=== PATIENT | female | born 1995 | race Caucasian/White ===

== ENCOUNTER → 2017-11-17 15:50 | Outpatient (CLI) | payer OTHER, MEDICAID, SELFPAY ==
--- NOTE | 2017-11-17 16:02 | DI.US.S_ITS ---
PROCEDURE: US OB >= 14 WEEKS FETUS INDICATIONS: Anatomy Scan OUTSIDE/PRIOR DATING DATA: Last menstrual period (LMP): 06.27.17. LMP-based estimated date of delivery (LEATHA): 04.03.18. First dating scan (date and location): Referring physician's office 10.10.17. Estimated date of delivery (LEATHA) from first dating scan: 04.03.18 TECHNIQUE: Real-time scanning was performed of the fetus, with image documentation and biometric measurements. Endovaginal scanning: Not performed COMPARISON: [facility], , OB COMPLETE LESS THAN 14 WKS, 10/10/2017, 17:48. [facility], , US OB >= 14 WEEKS FETUS, 11/02/2017, 16:20. FINDINGS: General: A single living intrauterine gestation is present. Presentation: Breech. Placenta: Placental position is anterior, without previa. Amniotic fluid index: 3.8 cm, normal range is 5-24 cm. heart rate: 147 beats per minute. Maternal cervical canal: 3.8 cm long. Normal lower limit is 2.5 cm. biometrics: Biparietal diameter: 49 mm; 20 weeks 6 days Head circumference: 178 mm; 20 weeks 2 days Abdominal circumference: 148 mm; 20 weeks 1 day Femur length: 34 mm; 20 weeks 5 days Estimated gestational age from initial scan: 20 weeks 3 days Composite gestational age from present scan: 20 weeks 4 days Estimated weight and percentile: 349 g, which is at the 41st percentile for gestational age Measurement variability for biometric dating: +/- 7 days from 14 weeks to 15 weeks 6 days gestation, +/- 10 days from 16 weeks to 21 weeks 6 days gestation, +/- 2 weeks from 22 weeks to 27 weeks 6 days gestation, +/- 3 weeks for 28 weeks gestation or later. weight reference: 4500 g or EFW >90/95% is considered macrosomia or large for gestational age. EFW <10% is small for gestational age. EFW 5% or less is considered intra-uterine growth restriction. Anatomic survey: Neuro: Ventricles are non-dilated at less than 10 mm. Cisterna magna is normal at 3-11 mm. Cerebellum is normal in size and morphology. Nuchal skin fold: Normal at less than 6 mm between 14-21 weeks gestational age. Face: Nose and lips, facial profile are normal. Spine: No evidence for spina bifida. Heart: 4-chambered heart is present, with normal ventricular outflow tracts. Diaphragm: Diaphragm is intact. Stomach: Left-sided stomach is present. Kidneys: No hydronephrosis. Normal is less than 5 mm in 2nd trimester, less than 7 mm in 3rd trimester. Cord: 3-vessel cord has orthotopic insertion. Bladder: Normal in size. Extremities: All 4 extremities identified. IMPRESSION: 1. Single living anterior and gestation. 2. Normal survey of anatomy. Dictated by: Tracey Rankin M.D. on 11/17/2017 at 17:27 Approved by: Tracey Rankin M.D. on 11/17/2017 at 17:44
== END ==
PROVIDERS: PCP Obstetrics & Gynecology; Visit Provider Obstetrics & Gynecology
DX: Z34.92 Encounter for supervision of normal pregnancy, unspecified, second trimester (principal); Z3A.20 20 weeks gestation of pregnancy
CPT/HCPCS: 76811

== ENCOUNTER → 2018-01-06 13:40 | Outpatient (CLI) | payer OTHER, MEDICAID, SELFPAY ==
[2018-01-06 14:59] LABS: Hemoglobin 12.6 g/dL (12.0-16.0)
[2018-01-06 15:20] LABS: GTT (PREG) 1 Hour PP 50gm Dose 98 mg/dL (76-139)
== END ==
PROVIDERS: PCP Family Medicine; Visit Provider Obstetrics & Gynecology
DX: Z34.02 Encounter for supervision of normal first pregnancy, second trimester (principal)
CPT/HCPCS: 36415; 82950; 85014; 85018

== ENCOUNTER → 2018-01-31 16:34 | Outpatient (CLI) | payer OTHER, MEDICAID, SELFPAY | PROVIDERS: PCP Family Medicine; Visit Provider Obstetrics & Gynecology | DX: Z34.93 Encounter for supervision of normal pregnancy, unspecified, third trimester (principal); Z53.9 Procedure and treatment not carried out, unspecified reason ==

== ENCOUNTER → 2018-03-15 17:39 | Outpatient (CLI) | payer OTHER, MEDICAID, SELFPAY ==
[2018-03-16 11:14] LABS: Strep Grp B PCR POS for Grp B Strep
== END ==
PROVIDERS: PCP Family Medicine; Visit Provider Obstetrics & Gynecology
DX: Z3A.37 37 weeks gestation of pregnancy (principal)
CPT/HCPCS: 87653

== ENCOUNTER 2018-04-05 10:31 | Observation (INO) | payer OTHER, MEDICAID, SELFPAY ==
--- NOTE | 2018-05-26 15:28 | PM.OBDS.1 ---
Discharge Providers Date of admission: 04/05/18 10:31 Primary care physician: Karma Daniel DO Discharge provider: Ania Morrell MD Discharge Date: 04/13/18 Summary Date Patient Seen: 04/13/18 Time Patient Seen: 08:40 Hospital Course: Patient is a 22-year-old 1 para 1 who presented for induction of labor at 41-,2/7 weeks gestation. She had artificial rupture of membranes at 13 20 on 04/11/2018. She delivered at 4:41 a.m. on 04/12/2018 by spontaneous vaginal delivery. Her course was unremarkable and she was discharged home on 04/13/2018 Peripartum Data Infant Delivery Method: Natural Vaginal Laceration description: Perineal - 1st Degree Episiotomy description: None Procedures: Induction of labor with Pitocin Epidural analgesia Spontaneous vaginal delivery complications: none Discharge Diagnosis (1) 41 weeks gestation of : Status: Acute (2) Spontaneous vaginal delivery: Status: Acute Status at Discharge Functional status at discharge: independent ambulation Overall status at discharge: patient is progressing back to baseline Time Spent with Patient Total time spent providing and/or coordinating discharge services: Less than 30 minutes Discharge Plan Discharge Plan Patient Disposition: Home Discharge comment: Call with fever, chills or bleeding vaginally more than a pad in an hour Discharge Med Rec/Prescriptions Prescriptions: No Action valacyclovir [Valtrex] 500 mg tablet 500 mg PO DAILY Qty: 90 RF: 1 norethindrone (contraceptive) [Ortho Micronor] 0.35 mg tablet 0.35 mg PO DAILY Qty: 28 RF: 11 Follow up/Referrals: Karma Daniel DO [Primary Care Provider] - Ania Morrell MD [Physician] - 6 Weeks Provider Discharge Instructions Diet: Diet as Tolerated Activity: No intercourse Skin/Wound/Dressing Care Report to your healthcare provider any signs of infection, such as:: chills, fever, increased pain and unusual drainage Visit Report/Discharge Packet Instructions: DI for Labor and Delivery, Vaginal Visit Report Forms: Stroke Signs & Symptoms Discharge Data Primary Care Provider: Karma Daniel Attending Provider: Ania Morrell Admit Date/Time: 04/05/18 10:31 Discharges patient from system. Discharge Date/Time: 04/05/18 13:30
== END 2018-04-05 13:30 | disposition home or self-care (01) ==
PROVIDERS: Admitting Provider Obstetrics & Gynecology; PCP Family Medicine; Visit Provider Obstetrics & Gynecology
DX: Z34.03 Encounter for supervision of normal first pregnancy, third trimester (principal); Z3A.40 40 weeks gestation of pregnancy
CPT/HCPCS: 59025; 59050; G0378; G0379

== ENCOUNTER 2018-04-08 14:07 | Outpatient (CLI) | payer OTHER, MEDICAID, SELFPAY ==
--- NOTE | 2018-04-08 14:48 | PM.OBTRLD ---
Visit Information Visit Information Date of evaluation: 04/08/18 Primary OB Provider: Ania Morrell On-call OB Provider: Karma Daniel Reason for Evaluation: Yes non-stress test non-stress test reason: other (Postdates) Evaluation Evaluation Baseline heart rate: 130 Variability: Moderate (11-25) monitor accelerations: Present monitor decelerations: Absent Category of Tracing: I Diagnosis, Plan/Disposition Final Diagnosis (1) 40 weeks gestation of : Current Visit: Yes Status: Acute Plan/Disposition Plan: Patient is at 22 year old at 40+5 wks gestation here for postdates NST. NST reactive. Follow up in clinic as scheduled.
--- NOTE | 2018-04-08 14:51 | P.TNLD_ITS ---
Visit Information Visit Information Date of evaluation: 04/08/18 Primary OB Provider: Ania Morrell On-call OB Provider: Karma Daniel Reason for Evaluation: Yes non-stress test non-stress test reason: other ( Postdates) Evaluation Evaluation Baseline heart rate: 130 Variability: Moderate (11-25) monitor accelerations: Present monitor decelerations: Absent Category of Tracing: I Diagnosis, Plan/Disposition Final Diagnosis (1) 40 weeks gestation of : Current Visit: Yes Status: Acute Plan/Disposition Plan: Patient is at 22 year old at 40+5 wks gestation here for postdates NST. NST reactive. Follow up in clinic as scheduled.
== END 2018-04-08 14:40 | disposition home or self-care (01) ==
LOC: LABOR 15:06 → OB 04-10 14:06
PROVIDERS: PCP Family Medicine; Visit Provider Obstetrics & Gynecology
DX: O48.0 Post-term pregnancy (principal); Z3A.40 40 weeks gestation of pregnancy
CPT/HCPCS: 59025; G0378; G0379

== ENCOUNTER 2018-04-10 17:16 | Outpatient (CLI) | payer SELFPAY | END 2018-04-10 19:20 | disposition home or self-care (01) | LOC: OB 04-12 11:30 → LABOR 04-12 11:30 | PROVIDERS: PCP Family Medicine; Visit Provider Obstetrics & Gynecology | DX: O48.0 Post-term pregnancy (principal); Z3A.41 41 weeks gestation of pregnancy | CPT/HCPCS: 59025; 59050; G0378; G0379 ==

== ENCOUNTER 2018-04-11 06:49 | Inpatient (IN) | payer OTHER, MEDICAID, SELFPAY ==
[2018-04-11] MEDS: PENICILLIN G POTASSIUM 5,000,000 UNIT in DEXTROSE 5% IN WATER 250 ML IV (08:38)
[2018-04-11] MEDS: LACTATED RINGERS 1,000 ML 100 ML IV ×2 (08:39→18:36)
[2018-04-11] MEDS: OXYTOCIN PREMIX 30 UNIT/500 ML PLAST..BAG IV (08:39)
[2018-04-11 08:59] LABS: Add Manual Diff / Slide Review NO; Basophils Percent Auto 0.1 % (0-2); Eosinophils Percent Auto 0.5 % (2-4); Hematocrit 37.8 % (36-46); Mean Corpuscular HGB Conc 34.4 % (30-36); Mean Corpuscular Hemoglobin 31.5 PG (26-34); Mean Corpuscular Volume 91.7 fL (80-100); Monocytes Percent Auto 7.3 % (3-14); Neutrophils Absolute Auto 8000 /uL (3000-5900); Neutrophils Percent Auto 78.1 % (50-75); Platelet Count 161 X10^3/uL (150-400); Red Blood Cell Count 4.12 X10^6/uL (4.0-5.2); Red Cell Distribution Width 13.1 % (11.6-14.8); White Blood Cell Count 10.3 X10^3/uL (4.5-11.0)
[2018-04-11 12:20] VITALS: BP 128/83
[2018-04-11] MEDS: PENICILLIN G POTASSIUM 3,000,000 UNIT/50 ML FROZ.PIGGY 100 UNIT IV ×3 (12:26→20:30)
[2018-04-11] MEDS: ONDANSETRON 4 MG/2 ML INJ IV (19:06)
[2018-04-12] MEDS: LACTATED RINGERS 1,000 ML 100 ML IV (00:57)
[2018-04-12] MEDS: DOCUSATE 250 MG CAPSULE PO (08:09)
[2018-04-12] MEDS: LANOLIN OINT 7 GM 1 APPLIC TOP (08:09)
[2018-04-12] MEDS: IBUPROFEN 600 MG TABLET PO ×3 (08:09→19:46)
--- NOTE | 2018-04-12 14:48 | PATH_ITS ---
[facility] Accession Number: [id number] . 01 Material submitted: . LEFT VULVAR LESION . 02 Diagnosis: Skin From Left Vulvar Area: Condyloma accuminatum, focally inflamed. MRV/04/14/2018 . 02 Electronically signed: . Chris Haney MD, Pathologist NPI- [id number] . 01 Gross description: . Received one formalin-filled container labeled with the patient's name and labeled L vulvar lesion. The specimen consists of a hooper-dixon to dixon-brown, ovoid portion of skin which measures 1.1 x 0.7 x 0.4 cm. On the epidermal surface are four light hooper, rough, cobblestone, and raised areas that range in size from 0.1 cm in diameter to 0.6 x 0.4 cm. The specimen is inked blue at the surgical margin, sectioned into four pieces, and entirely submitted in two cassettes. ([id number]) /FRR . 02 Pathologist provided ICD-10: A63.0 . 02 CPT . 418461 Performed at: 01 [facility] [address] [place] [address], [place], [place] [id number] MD David Meyer MD Phone: [phone] Performed at: 02 [facility] [address] [place], [place] [id number] MD Gerber Santacruz MD Phone: [phone]
[2018-04-12] MEDS: OXYCODONE/ACETAMINOPHEN 5/325 TABLET 1 TAB PO (19:46)
[2018-04-13] MEDS: OXYCODONE/ACETAMINOPHEN 5/325 TABLET 1 TAB PO (01:32)
[2018-04-13] MEDS: IBUPROFEN 600 MG TABLET PO ×3 (04:20→17:27)
[2018-04-13 06:58] LABS: Hematocrit 31.4 % (36-46); Hemoglobin 10.7 g/dL (12.0-16.0)
[2018-04-13] MEDS: LANOLIN OINT 7 GM 1 APPLIC TOP (09:57)
[2018-04-13] MEDS: PRENATAL VIT,CALC/IRON/FOLIC 1 TABLET 1 TAB PO (09:58)
[2018-04-13] MEDS: DOCUSATE 250 MG CAPSULE PO (09:58)
[2018-04-13 10:41] VITALS: BP 139/79; PULSE 95; RESP 16; TEMP 36.6
--- NOTE | 2018-04-13 13:30 | DS_ITS ---
Discharge Providers Date of admission: 04/05/18 10:31 Primary care physician: Karma Daniel DO Discharge provider: Ania Morrell MD Discharge Date: 04/13/18 Summary Date Patient Seen: 04/13/18 Time Patient Seen: 08:40 Hospital Course: Patient is a 22-year-old 1 para 1 who presented for induction of labor at 41-,2/7 weeks gestation. She had artificial rupture of membranes at 13 20 on 04/11/2018. She delivered at 4:41 a.m. on 04/12/2018 by spontaneous vaginal delivery. Her course was unremarkable and she was discharged home on 04/13/2018 Peripartum Data Infant Delivery Method: Natural Vaginal Laceration description: Perineal - 1st Degree Episiotomy description: None Procedures: Induction of labor with Pitocin Epidural analgesia Spontaneous vaginal delivery complications: none Discharge Diagnosis (1) 41 weeks gestation of : Status: Acute (2) Spontaneous vaginal delivery: Status: Acute Status at Discharge Functional status at discharge: independent ambulation Overall status at discharge: patient is progressing back to baseline Time Spent with Patient Total time spent providing and/or coordinating discharge services: Less than 30 minutes Discharge Plan Discharge Plan Patient Disposition: Home Discharge comment: Call with fever, chills or bleeding vaginally more than a pad in an hour Discharge Med Rec/Prescriptions Prescriptions: No Action valacyclovir [Valtrex] 500 mg tablet 500 mg PO DAILY Qty: 90 RF: 1 norethindrone (contraceptive) [Ortho Micronor] 0.35 mg tablet 0.35 mg PO DAILY Qty: 28 RF: 11 Follow up/Referrals: Karma Daniel DO [Primary Care Provider] - Ania Morrell MD [Physician] - 6 Weeks Provider Discharge Instructions Diet: Diet as Tolerated Activity: No intercourse Skin/Wound/Dressing Care Report to your healthcare provider any signs of infection, such as:: chills, fever, increased pain and unusual drainage Visit Report/Discharge Packet Instructions: DI for Labor and Delivery, Vaginal Visit Report Forms: Stroke Signs & Symptoms Discharge Data Primary Care Provider: Karma Daniel Attending Provider: Ania Morrell Admit Date/Time: 04/05/18 10:31 Discharges patient from system. Discharge Date/Time: 04/05/18 13:30 Signed By:<Electronically signed by Ania Morrell MD> 05/26/18 [id number]
--- NOTE | 2018-05-26 12:37 | PM.OBPRVD ---
Delivery date: 04/12/18 Intrapartal events: None Induction method: per pitocin protocol Delivery augmentation: rupture of membranes Delivery monitor: external FHT and external uterine Route of delivery: Episiotomy description: None Laceration description: Periurethral - 1st Degree Delivery repair: chromic Estimated blood loss (mL): 150 Anesthesia type: Epidural Complications: None Narrative: The patient was clipped complete and pushed for 30 min. At 4:41 a.m., a live female infant delivered spontaneously over an intact perineum. No nuchal cord. The remainder of the body delivered without difficulty and was placed on mom's abdomen. The cord was double clamped and cut. Cord bloods were obtained. Placenta delivered intact with a 3 vessel cord at 4:47 a.m.. Pitocin was given in the IV fluids. The fundus was massaged to firm. A first-degree laceration was repaired with 2 0 chromic in the usual fashion. Hemostasis was achieved. Apgars 6 at 1 min and 8 at 5 min. . Epidural analgesia. Weight 7 lb 11.28 oz. Mom and stable to recovery. Plan for aftercare: To routine care
--- NOTE | 2018-05-26 12:41 | P.PCNOB_ITS ---
Delivery date: 04/12/18 Intrapartal events: None Induction method: per pitocin protocol Delivery augmentation: rupture of membranes Delivery monitor: external FHT and external uterine Route of delivery: Episiotomy description: None Laceration description: Periurethral - 1st Degree Delivery repair: chromic Estimated blood loss (mL): 150 Anesthesia type: Epidural Complications: None Narrative: The patient was clipped complete and pushed for 30 min. At 4:41 a.m. , a live female infant delivered spontaneously over an intact perineum. No nuchal cord. The remainder of the body delivered without difficulty and was placed on mom's abdomen. The cord was double clamped and cut. Cord bloods were obtained. Placenta delivered intact with a 3 vessel cord at 4:47 a.m.. Pitocin was given in the IV fluids. The fundus was massaged to firm. A first- degree laceration was repaired with 2 0 chromic in the usual fashion. Hemostasis was achieved. Apgars 6 at 1 min and 8 at 5 min. . Epidural analgesia. Weight 7 lb 11.28 oz. Mom and stable to recovery. Plan for aftercare: To routine care
== END 2018-04-13 18:00 | disposition home or self-care (01) | DRG 560 ==
PROVIDERS: Admitting Provider Obstetrics & Gynecology; PCP Family Medicine; Visit Provider Obstetrics & Gynecology
DX: O48.0 Post-term pregnancy (principal); Z3A.41 41 weeks gestation of pregnancy; N90.7 Vulvar cyst; O70.0 First degree perineal laceration during delivery; Z37.0 Single live birth
CPT/HCPCS: 01967; 36415; 59025; 59050; 59409; 85014; 85018; 85025; 86850; 86900; 86901; 88305; G0378; G0379; J2405; J2540; J2590

== ENCOUNTER → 2020-02-16 09:44 | Outpatient (CLI) | payer OTHER, MEDICAID, SELFPAY ==
[2020-02-16 10:43] LABS: Pregnancy Test Urine Negative (Negative)
[2020-02-16 10:59] LABS: Alanine Aminotransferase 35 IU/L (<35); Albumin 4.4 g/dL (3.5-5.0); Albumin Globulin Ratio 1.3 (1.0-2.8); Alkaline Phosphatase 61 U/L (38-126); Aspartate Aminotransferase 52 IU/L (14-36); BUN Creatinine Ratio 11.1 (6-22); Bilirubin Total 0.4 mg/dL (0.2-1.3); Blood Urea Nitrogen 7 mg/dL (7-17); Carbon Dioxide 30 mmol/L (22-32); Chloride 103 mmol/L (98-107); Estimated Glomerular Filt Rate > 60.0 mL/min (>60); Globulin 3.3 g/dL (1.7-4.1); Glucose 96 mg/dL (70-100); HEMOLYSIS < 15 (0-50); Potassium 3.6 mmol/L (3.4-5.1); Sodium 139 mmol/L (137-145); Total Protein 7.7 g/dL (6.3-8.2)
[2020-02-16 11:16] LABS: Prolactin 7.9 ng/mL (3.0-18.6)
[2020-02-16 11:30] LABS: TSH w/ Reflex to FT4 1.97 uIU/mL (0.47-4.68)
== END ==
PROVIDERS: PCP Registered Nurse; Referring Provider Nurse Practitioner Family; Visit Provider Nurse Practitioner Family
DX: N64.52 Nipple discharge (principal); B00.9 Herpesviral infection, unspecified
CPT/HCPCS: 80053; 81025; 84146; 84443

== ENCOUNTER → 2020-02-22 10:03 | Outpatient (CLI) | payer OTHER, MEDICAID, SELFPAY ==
--- NOTE | 2020-02-22 10:06 | DI.US.S_ITS ---
PROCEDURE: US ABDOMEN COMPLETE INDICATIONS: elevated liver enzymes TECHNIQUE: Real-time scanning was performed of the abdominal and retroperitoneal organs, with image documentation. COMPARISON: None. FINDINGS: Liver: Liver is normal in size and homogeneous in echotexture. Gallbladder: The gallbladder contains multiple stones largely filling the gallbladder lumen. The gallbladder wall is not significantly thickened. No adjacent biliary distension is found. Biliary ducts: Intrahepatic bile ducts are non-dilated. Extrahepatic bile duct caliber measures 2.2 mm. Normal is 6-7 mm or less in diameter, or 10 mm or less post-cholecystectomy. Pancreas: Visualized portions of the pancreas are sonographically normal. Spleen: Spleen is normal in size and homogeneous in echotexture. Kidneys: Kidneys are normal in size and echotexture. Right kidney measures 10.8 cm long; left kidney measures 11.7 cm long. No hydronephrosis or nephrolithiasis. No solid masses. Aorta: Visualized aorta is normal in caliber at less than 3 cm. Iliacs: Proximal common iliac arteries are normal in caliber at less than 2.5 cm. IVC: Intrahepatic inferior vena cava is patent. Miscellaneous: No free abdominal fluid. IMPRESSION: Numerous small and moderate-sized gallstones are present almost completely filling the gallbladder lumen. Currently no biliary distention is associated. The finding raises concern for risk of biliary colic and biliary pancreatitis. Dictated by: Ulises Bain M.D. on 02/22/2020 at 15:14 Approved by: Ulises Bain M.D. on 02/22/2020 at 16:21
--- NOTE | 2020-02-22 12:23 | DI.US.S_ITS ---
Patient Name: FREDY RODRIGUES date: 1995 Sex: F Attending Physician: Simona Indications: Date: 02/22/2020 12:38 At the request of: JOE YIP Procedure: US breast LT limited LIMITED ULTRASOUND OF LEFT BREAST: 02/22/2020 CLINICAL: Nipple discharge, both breasts, not bloody. No prior exams were available for comparison. Real-time ultrasound of the left breast was performed. Bella scale images of the real-time examination were reviewed. No significant abnormalities were seen sonographically in the left breast. IMPRESSION: NEGATIVE There is no sonographic evidence of malignancy. There is no abnormality seen in the left breast to correspond with the area of clinical concern and nonbloody discharge from the nipple in the sub-areolar depth which likely represent physiological discharge, however, clinical followup is recommended for persistent or worsening symptoms or development of clinically suspicious findings. Findings and recommendations were conveyed to the patient during today's evaluation. This exam was interpreted at Station ID: [id number]. Electronically Signed By: Melquiades Ford M.D. aty/:02/22/2020 13:01:27 letter sent: Clinical Evaluation Ultrasound BI-RADS: 1 Negative
[2020-02-23 05:10] LABS: HBsAg Screen Negative (Negative); Hepatitis A Antibody IgM Negative (Negative); Hepatitis B Core Antibody IgM Negative (Negative); Hepatitis C Antibody <0.1 s/co ratio (0.0-0.9)
--- NOTE | 2020-03-24 12:20 | DI.US.S_ITS ---
Patient Name: FREDY RODRIGUES date: 1995 Sex: F Attending Physician: Simona Indications: Date: 02/22/2020 12:36 At the request of: JOE YIP Procedure: US breast RT limited LIMITED ULTRASOUND OF RIGHT BREAST: 02/22/2020 CLINICAL: Nipple discharge, both breasts, not bloody. No prior exams were available for comparison. Real-time ultrasound of the right breast was performed. Bella scale images of the real-time examination were reviewed. No significant abnormalities were seen sonographically in the right breast. IMPRESSION: NEGATIVE There is no sonographic evidence of malignancy. There is no abnormality seen in the right breast to correspond with the area of clinical concern and nonbloody discharge from the nipple in the anterior depth which likely represent normal fibroglandular tissue, however, clinical followup is recommended for persistent or worsening symptoms or development of clinically suspicious findings. Findings and recommendations were conveyed to the patient during today's evaluation. This exam was interpreted at Station ID: [id number]. Electronically Signed By: Melquiades Ford M.D. aty/:02/22/2020 13:03:46 letter sent: Clinical Evaluation Ultrasound BI-RADS: 1 Negative
== END ==
PROVIDERS: PCP Registered Nurse; Referring Provider Nurse Practitioner Family; Visit Provider Nurse Practitioner Family
DX: R74.8 Abnormal levels of other serum enzymes (principal); K80.20 Calculus of gallbladder without cholecystitis without obstruction; N64.52 Nipple discharge
CPT/HCPCS: 36415; 76642; 76700; 80074

== ENCOUNTER → 2020-02-28 15:55 | Outpatient (CLI) | payer OTHER, MEDICAID, SELFPAY ==
[2020-02-28 16:18] LABS: Add Manual Diff / Slide Review NO; Basophils Absolute Auto 0 /uL (0-100); Basophils Percent Auto 0.2 % (0-2); Eosinophils Absolute Auto 100 /uL (0-450); Eosinophils Percent Auto 1.3 % (2-4); Hematocrit 39.5 % (36-46); Hemoglobin 13.1 g/dL (12.0-16.0); Lymphocytes Absolute Auto 1700 /uL (1100-4500); Mean Corpuscular HGB Conc 33.2 % (30-36); Mean Corpuscular Volume 87.4 fL (80-100); Monocytes Absolute Auto 500 /uL (0-900); Monocytes Percent Auto 7.9 % (3-14); Neutrophils Absolute Auto 3600 /uL (1500-7000); Neutrophils Percent Auto 61.6 % (50-75); Platelet Count 247 X10^3/uL (150-400); Red Blood Cell Count 4.53 X10^6/uL (4.0-5.2); Red Cell Distribution Width 13.9 % (11.6-14.8); White Blood Cell Count 5.9 X10^3/uL (4.5-11.0)
== END ==
PROVIDERS: PCP Registered Nurse; Referring Provider Registered Nurse; Visit Provider Registered Nurse
DX: Z30.41 Encounter for surveillance of contraceptive pills (principal)
CPT/HCPCS: 36415; 85025; 99214

== ENCOUNTER → 2021-09-02 09:16 | Outpatient (CLI) | payer OTHER, MEDICAID, SELFPAY ==
[2021-09-02 10:55] LABS: Alanine Aminotransferase 26 IU/L (<35); Albumin 4.8 g/dL (3.5-5.0); Albumin Globulin Ratio 1.6 (1.0-2.8); Alkaline Phosphatase 49 U/L (38-126); Aspartate Aminotransferase 24 IU/L (14-36); BUN Creatinine Ratio 19.4 (6-22); Bilirubin Total 0.4 mg/dL (0.2-1.3); Blood Urea Nitrogen 13 mg/dL (7-17); Calcium 9.6 mg/dL (8.4-10.2); Carbon Dioxide 30 mmol/L (22-32); Chloride 103 mmol/L (98-107); Estimated Glomerular Filt Rate > 60.0 mL/min (>60); Glucose 94 mg/dL (70-100); HEMOLYSIS < 15 (0-50); Potassium 4.1 mmol/L (3.4-5.1); Sodium 140 mmol/L (137-145); Total Protein 7.8 g/dL (6.3-8.2)
== END ==
PROVIDERS: PCP Registered Nurse; Referring Provider Registered Nurse; Visit Provider Registered Nurse
DX: R89.9 Unspecified abnormal finding in specimens from other organs, systems and tissues (principal); R74.8 Abnormal levels of other serum enzymes
CPT/HCPCS: 36415; 80053

== ENCOUNTER → 2021-10-12 16:34 | Outpatient (CLI) | payer OTHER, MEDICAID, SELFPAY ==
[2021-10-12 17:22] LABS: HCG Quantitative /Beta subunit 20.3 mIU/mL
== END ==
PROVIDERS: PCP Registered Nurse; Referring Provider Obstetrics & Gynecology; Visit Provider Obstetrics & Gynecology
DX: O20.9 Hemorrhage in early pregnancy, unspecified (principal)
CPT/HCPCS: 36415; 84702

== ENCOUNTER → 2021-12-24 11:14 | Outpatient (CLI) | payer OTHER, MEDICAID, SELFPAY ==
[2021-12-24 12:24] LABS: HCG Quantitative /Beta subunit 90.5 mIU/mL
== END ==
PROVIDERS: PCP Registered Nurse; Referring Provider Obstetrics & Gynecology; Visit Provider Obstetrics & Gynecology
DX: N91.2 Amenorrhea, unspecified (principal)
CPT/HCPCS: 36415; 84702

== ENCOUNTER → 2021-12-26 12:31 | Outpatient (CLI) | payer OTHER, MEDICAID, SELFPAY ==
[2021-12-26 13:20] LABS: HCG Quantitative /Beta subunit 275.7 mIU/mL
== END ==
PROVIDERS: PCP Registered Nurse; Referring Provider Obstetrics & Gynecology; Visit Provider Obstetrics & Gynecology
DX: N91.2 Amenorrhea, unspecified (principal)
CPT/HCPCS: 36415; 84702

== ENCOUNTER → 2022-02-08 16:36 | Outpatient (CLI) | payer OTHER, MEDICAID, SELFPAY ==
[2022-02-08 17:16] LABS: Add Manual Diff / Slide Review NO; Basophils Absolute Auto 0 /uL (0-100); Basophils Percent Auto 0.2 % (0-2); Eosinophils Absolute Auto 100 /uL (0-450); Eosinophils Percent Auto 0.8 % (2-4); Hematocrit 36.3 % (36-46); Hemoglobin 12.5 g/dL (12.0-16.0); Lymphocytes Absolute Auto 1800 /uL (1100-4500); Lymphocytes Percent Auto 28.7 % (25-40); Mean Corpuscular HGB Conc 34.5 % (30-36); Mean Corpuscular Hemoglobin 30.3 PG (26-34); Mean Corpuscular Volume 87.9 fL (80-100); Monocytes Absolute Auto 500 /uL (0-900); Monocytes Percent Auto 8.4 % (3-14); Neutrophils Absolute Auto 4000 /uL (1500-7000); Neutrophils Percent Auto 61.9 % (50-75); Platelet Count 206 X10^3/uL (150-400); Red Blood Cell Count 4.13 X10^6/uL (4.0-5.2); Red Cell Distribution Width 14.3 % (11.6-14.8); White Blood Cell Count 6.4 X10^3/uL (4.5-11.0)
[2022-02-08 18:20] LABS: Appearance Urine UA CLEAR; Bilirubin Urine UA NEGATIVE (NEGATIVE); Color Urine UA YELLOW; Glucose Urine UA NEGATIVE (Negative); Ketones Urine UA NEGATIVE (NEGATIVE); Leukocyte Esterase Urine UA NEGATIVE (NEGATIVE); Nitrite Urine UA NEGATIVE (Negative); Occult Blood Urine UA TRACE-LYSED (Negative); Protein Urine UA NEGATIVE (Negative); Urobilinogen Urine UA 0.2 E.U./dL (0.2)
[2022-02-08 19:33] LABS: Hepatitis B Surface Antigen NEGATIVE s/c (NEGATIVE); Rubella Antibody IgG 7.5 IU/mL (>15)
[2022-02-08 19:52] LABS: HIV 1 & 2 Ab/Ag 4th Gen Combo NEGATIVE (NEGATIVE); Hep C Virus Ab w/Reflex Quant NEGATIVE s/c (NEGATIVE)
[2022-02-10 07:10] LABS: RPR Screen Non Reactive (Non Reactive)
[2022-02-10 07:36] LABS: Varicella IgG Antibody 525 index (Immune >165)
== END ==
PROVIDERS: PCP Registered Nurse; Referring Provider Obstetrics & Gynecology; Visit Provider Obstetrics & Gynecology
DX: Z34.81 Encounter for supervision of other normal pregnancy, first trimester (principal)
CPT/HCPCS: 36415; 80055; 81003; 86787; 86803; 86850; 86900; 86901; 87086; 87389

== ENCOUNTER → 2022-04-15 15:28 | Outpatient (CLI) | payer OTHER, MEDICAID, SELFPAY ==
[2022-04-19 13:51] LABS: Gest Age on Col Date 19.9 weeks (.); Insulin Dep Diabetes No (.); OSBR Risk 1IN 9540 (.); Results Report (.); Test Results *Screen Negative* (.)
== END ==
PROVIDERS: Referring Provider Obstetrics & Gynecology; Visit Provider Obstetrics & Gynecology
DX: Z34.82 Encounter for supervision of other normal pregnancy, second trimester (principal); Z3A.19 19 weeks gestation of pregnancy
CPT/HCPCS: 36415; 82105

== ENCOUNTER → 2022-04-23 15:02 | Outpatient (CLI) | payer OTHER, MEDICAID, SELFPAY ==
--- NOTE | 2022-04-23 15:03 | DI.US.S_ITS ---
PROCEDURE: US OB >= 14 WEEKS FETUS INDICATIONS: ANATOMY OUTSIDE/PRIOR DATING DATA: Last menstrual period (LMP): Uncertain. First dating scan (date and location): 01/15/2022. Estimated date of delivery (LEATHA) from first dating scan: 09/04/2022. The calculations are made using the ultrasound derived LEATHA of 09/04/2022. TECHNIQUE: Real-time scanning was performed of the fetus, with image documentation and biometric measurements. COMPARISON: [facility], , OB <= 14 WEEKS FETUS, 01/15/2022, 11:54. [facility], , US OB <= 14 WEEKS FETUS, 02/08/2022, 16:24. FINDINGS: General: A single living intrauterine gestation is present. Presentation: Vertex. Placenta: Placental position is posterior , without previa. Amniotic fluid index: 17.2 cm, normal range is 5-24 cm. Single deepest vertical pocket is 4.8 cm. heart rate: 139 beats per minute. Maternal cervical canal: 4.8 cm long. Normal lower limit is 2.5 cm. biometrics: Biparietal diameter: 5.3 cm, 22 weeks 1 day Head circumference: 18.9 cm, 21 weeks 1 day Abdominal circumference: 16.4 cm, 21 weeks 3 days Femur length: 3.4 cm, 20 weeks 4 days Clinically estimated gestational age: 20 weeks 6 days Composite gestational age from present scan: 21 weeks 2 days Estimated weight and percentile: 399 g, 58th percentile Anatomic survey: Neuro: Ventricles are non-dilated at less than 10 mm. Cisterna magna is normal at 3-11 mm. Cerebellum is normal in size and morphology. Nuchal skin fold: Normal at less than 6 mm between 14-21 weeks gestational age. Face: Nose and lips, facial profile are normal. Spine: No evidence for spina bifida. Heart: 4-chambered heart view and ventricular of fluid tracks not well seen secondary to lie and patient body habitus Diaphragm: Diaphragm is intact. Stomach: Left-sided stomach is present. Kidneys: No hydronephrosis. Normal is less than 5 mm in 2nd trimester, less than 7 mm in 3rd trimester. Cord: 3-vessel cord has orthotopic insertion. Bladder: Normal in size. Extremities: All 4 extremities identified. IMPRESSION: 1. Single living intrauterine demonstrating appropriate interval growth with estimated weight at the 58th percentile. 2. cardiac structures not well seen secondary to lie. Remaining anatomic survey appears within normal limits. Recommend a repeat study in 2-4 weeks for further evaluation. We strive to produce accurate, complete, and clear reports of imaging services. To assist us in improving patient care, this report was composed using standard report templates and voice recognition software. Therefore, it may contain abnormal punctuation, insertions and/or omissions. Occasional wrong-word or sound-alike substitutions may occur. Though we review the report and make efforts to correct it, we do recommend that the report be read carefully in proper context to recognize any text inaccuracies. Dictated by: David Bautista M.D. on 04/24/2022 at 2:59 Approved by: David Bautista M.D. on 04/24/2022 at 3:05
== END ==
PROVIDERS: Referring Provider Obstetrics & Gynecology; Visit Provider Obstetrics & Gynecology
DX: Z34.82 Encounter for supervision of other normal pregnancy, second trimester (principal); Z3A.21 21 weeks gestation of pregnancy
CPT/HCPCS: 76811

== ENCOUNTER → 2022-05-18 13:15 | Outpatient (CLI) | payer OTHER, MEDICAID, SELFPAY ==
--- NOTE | 2022-05-18 13:17 | DI.US.S_ITS ---
PROCEDURE: US OB FOLLOW UP INDICATIONS: RE-EVALUATE HEART OUTSIDE/PRIOR DATING DATA: Last menstrual period (LMP): Not available. LMP-based estimated date of delivery (LEATHA): Not available. First dating scan (date and location): 01/15/2022. Estimated date of delivery (LEATHA) from first dating scan: 09/04/2022. The calculations are made using the working LEATHA of 09/04/2022. TECHNIQUE: Real-time scanning was performed of the fetus, with image documentation and biometric measurements. Endovaginal scanning: Not performed COMPARISON: [facility], OB >= 14 WEEKS FETUS, 04/23/2022, 15:40. [facility] OB <= 14 WEEKS FETUS, 02/08/2022, 16:24. [facility], OB <= 14 WEEKS FETUS, 01/15/2022, 11:54. FINDINGS: General: A single living intrauterine gestation is present. Presentation: Vertex. Placenta: Placental position is posterior , without previa. Amniotic fluid index: 15.8 cm, normal range is 5-24 cm. Single deepest vertical pocket is 4.5 cm. heart rate: 133 beats per minute. Maternal cervical canal: 3.4 cm long. Normal lower limit is 2.5 cm. biometrics: Not performed. Clinically estimated gestational age: 24 weeks 3 days Other: Normal four-chamber heart and ventricular outflow tracts. IMPRESSION: 1. A single living intrauterine gestation redemonstrated. 2. Normal heart. We strive to produce accurate, complete, and clear reports of imaging services. To assist us in improving patient care, this report was composed using standard report templates and voice recognition software. Therefore, it may contain abnormal punctuation, insertions and/or omissions. Occasional wrong-word or sound-alike substitutions may occur. Though we review the report and make efforts to correct it, we do recommend that the report be read carefully in proper context to recognize any text inaccuracies. Dictated by: Aliza Tang M.D. on 05/18/2022 at 19:09 Approved by: Aliza Tang M.D. on 05/18/2022 at 19:12
== END ==
PROVIDERS: Referring Provider Obstetrics & Gynecology; Visit Provider Obstetrics & Gynecology
DX: Z36.2 Encounter for other antenatal screening follow-up (principal); Z3A.24 24 weeks gestation of pregnancy
CPT/HCPCS: 76816

== ENCOUNTER → 2022-06-04 14:57 | Outpatient (CLI) | payer OTHER, MEDICAID, SELFPAY ==
[2022-06-04 16:36] LABS: Hematocrit 36.3 % (36-46); Hemoglobin 12.3 g/dL (12.0-16.0)
[2022-06-04 16:55] LABS: GTT (PREG) 1 Hour PP 50gm Dose 95 mg/dL (76-139)
== END ==
PROVIDERS: Referring Provider Obstetrics & Gynecology; Visit Provider Obstetrics & Gynecology
DX: Z34.82 Encounter for supervision of other normal pregnancy, second trimester (principal); Z3A.26 26 weeks gestation of pregnancy
CPT/HCPCS: 36415; 82950; 85014; 85018

== ENCOUNTER → 2022-08-11 16:48 | Outpatient (CLI) | payer OTHER, MEDICAID, SELFPAY ==
[2022-08-12 13:43] LABS: Strep Grp B PCR NEG for Grp B Strep
== END ==
PROVIDERS: Visit Provider Obstetrics & Gynecology
DX: Z34.83 Encounter for supervision of other normal pregnancy, third trimester (principal); Z3A.36 36 weeks gestation of pregnancy
CPT/HCPCS: 87653

== ENCOUNTER 2022-09-01 16:17 | Outpatient (CLI) | payer OTHER, MEDICAID, SELFPAY | END 2022-09-01 16:50 | disposition home or self-care (01) | LOC: OB 09-06 08:20 | PROVIDERS: Referring Provider Obstetrics & Gynecology; Visit Provider Obstetrics & Gynecology | DX: Z34.83 Encounter for supervision of other normal pregnancy, third trimester (principal); Z3A.39 39 weeks gestation of pregnancy | CPT/HCPCS: 59025; G0378; G0379 ==

== ENCOUNTER 2022-09-03 20:08 | Inpatient (IN) | payer OTHER, MEDICAID, SELFPAY ==
[2022-09-03 21:11] VITALS: BP 130/81
--- NOTE | 2022-09-03 21:23 | PM.OBHP.1 ---
OB HPI <Brandon Ness MD - Last Filed: 09/03/22 21:30> Date/Time Date of admission: 09/03/22 Date Patient Seen: 09/03/22 Time Patient Seen: 21:23 History of Present Condition Chief complaint: Thinks water broke : 2 Para: 1 Estimated Date of Delivery: 09/04/22 Estimated Gestational Age (weeks): 39+ 6 Narrative: Olga Martel is a 27 year old female 2 para 1 thought her water broke at home around 6:00 p.m. called was told to come to labor and delivery where upon she had a positive ROM test and was admitted even though she is not having any contractions. Patient is wanting to do her labor as natural as possible. Without epidural and without Pitocin if possible I have agreed to let her wait 12 hours from actual rupture of membranes prior to starting low-dose Pitocin History of Present care: good care Dating criteria: LMP confirmed by 1st trimester US Medical complications: none Prior (ies) History: Four years ago had a 7 lb 11 oz vaginal delivery after a prolonged labor <Peggy Ji CNM, ARNP - Last Filed: 09/04/22 10:57> History of Present Condition : 3 History of Present Dating criteria: based on 1st trimester US only Ultrasounds: normal 1st trimester US and normal mid trimester US Obstetrical complications: none Preadmission Labs Blood type: O (+) positive -: Antibody screen: negative, GBS status: negative, HBsAG: negative, HIV: negative, HSV 2: positive and RPR/VDLR: negative -: Chlamydia screen: not detected and Gonorrhea screen: not detected -: Rubella: not immune and Varicella: unknown HCT: 36.3 HCAB: negative Sequential screen: MsAFP screen negative Cell-free DNA: Negative x 4, XY 1 hr GTT: 50 Prior (ies) History: 03/2018 7 lb 11 oz vaginal delivery of healthy female at 41 weeks after a prolonged labor 09/2021 SAB at 6 weeks Evaluation <Brandon Ness MD - Last Filed: 09/03/22 21:30> Evaluation Variability: Average (6-10) monitor accelerations: Present Monitor Decelerations: Absent Uterine Contraction Intensity: Mild Dilation: 3-4 cm Effacement: 40-50% station: -2 Position of cervix: posterior Consistency: soft Ugalde score: 6 Non-invasive Membranes Rupture Test: positive <Peggy Ji CNM, ARNP - Last Filed: 09/04/22 10:57> Evaluation Ugalde score: 6 PFSH <Brandon Ness MD - Last Filed: 09/03/22 21:30> Medical History (Updated 08/08/22 @ 16:26 by Ania Morrell MD) Abnormal laboratory test Breakthrough bleeding Dermatitis Encounter for surveillance of contraceptive pills Ganglion cyst of dorsum of right wrist HSV-2 (herpes simplex virus 2) infection (2018) Nipple discharge Spontaneous vaginal delivery Surgical History Anesthesia Merom teeth extracted Family History Brother No problems noted. Sister No problems noted. Mother History of drug abuse in remission Father Hypertension History of drug abuse Gallstones Grandmother Ovarian cancer Grandfather Hyperlipidemia Ovarian cancer Social History marital status: number of children: 1 household members: spouse and children lives independently: Yes housing: house (duplex) pets and animals: No education level: middle school occupational status: unemployed current occupational exposures/hazards: No special davi needs: No seatbelt use: always water heater temp set < 120 deg: No working smoke detector in home: Yes carbon monox detector in home: Yes firearms in home: No do you feel safe at home: Yes Smoking Status: Never smoker second hand exposure: No alcohol intake: former (very rarely) substance use type: former substance user (used multiple substances as a teenager, not as an adult) during the past year weight has: other (Fluctuates a lot) well-balanced diet: daily or most days daily servings fruits/ve-4 caffeine: No Type(s) of exercise: weight lifting Meds <Brandon Ness MD - Last Filed: 09/03/22 21:30> Home Medications and Allergies Home Medications Medication Instructions Recorded Confirmed Type valacyclovir 500 mg tablet See Rx Instructions .Route 09/02/21 09/03/22 Rx .COMPLEX #90 tabs prenat.vits,roberto,ajk-eave-unord 1 tab PO DAILY 01/06/22 09/03/22 History Allergies Allergy/AdvReac Type Severity Reaction Status Date / Time No Known Drug Allergies Allergy Verified 09/03/22 21:15 Review of Systems <Brandon Ness MD - Last Filed: 09/03/22 21:30> Review of Systems Narrative: Unchanged from chart <Peggy Ji CNM, ARNP - Last Filed: 09/04/22 10:57> Review of Systems Narrative: Unchanged from chart, negative except ast noted in HPI OB Exam <Brandon Ness MD - Last Filed: 09/03/22 21:30> Vital signs Blood Pressure: 128/80 HENMT Head: normal to inspection Eyes General: appearance normal, both eyes and all related structures Resp Effort & Inspection: normal respiratory effort Cardio Rate: regular rate Rhythm: regular rhythm Extremities Lower extremity: Yes normal to inspection GI Palpation: Yes soft External Female Exam: Yes normal external appearance Speculum Exam - Vagina: Yes normal appearance of the vagina Presentation: vertex Estimated Weight (lbs): 8 Amniotic Fluid: clear <Peggy Ji CNM, ARNP - Last Filed: 09/04/22 10:57> Vital signs Blood Pressure: 130/81 Pulse Rate: 94 Respiratory Rate: 18 Temperature: 36.3 F Other: SVE 3.5 cm Objective <Brandon Ness MD - Last Filed: 09/03/22 21:30> Labs 09/03/22 21:55 Assessment and Plan <Brandon Ness MD - Last Filed: 09/03/22 21:30> Assessment and Plan Assessment and Plan narrative: Term ruptured membranes awaiting spontaneous onset of labor <Peggy Ji CNM, ARNP - Last Filed: 09/04/22 10:57> Assessment and Plan Assessment and Plan narrative: Term ruptured membranes awaiting spontaneous onset of labor at 39w1d PROM, clear fluid Not in labor GBS negative Rh positive HSV-2, on prophylaxis Vulvar varicosities Rubella non-immune FHR Category 1 green Plan: Admit to L&D Expectant management Epidural as desired Anticipate Time Spent with Patient Total time spent with greater than 50% in coordination of care (as documented) at patient's floor/unit and/or counseling patient:: 15-24 minutes
[2022-09-03 22:37] LABS: Add Manual Diff / Slide Review NO; Basophils Absolute Auto 0 /uL (0-100); Basophils Percent Auto 0.2 % (0-2); Eosinophils Absolute Auto 100 /uL (0-450); Eosinophils Percent Auto 0.8 % (2-4); Hematocrit 38.4 % (36-46); Hemoglobin 12.8 g/dL (12.0-16.0); Lymphocytes Absolute Auto 2000 /uL (1100-4500); Lymphocytes Percent Auto 24.5 % (25-40); Mean Corpuscular HGB Conc 33.4 % (30-36); Mean Corpuscular Hemoglobin 30.4 PG (26-34); Mean Corpuscular Volume 90.9 fL (80-100); Monocytes Absolute Auto 700 /uL (0-900); Monocytes Percent Auto 8.5 % (3-14); Neutrophils Absolute Auto 5400 /uL (1500-7000); Platelet Count 172 X10^3/uL (150-400); Red Blood Cell Count 4.22 X10^6/uL (4.0-5.2); Red Cell Distribution Width 14.1 % (11.6-14.8); White Blood Cell Count 8.2 X10^3/uL (4.5-11.0)
[2022-09-04] MEDS: ONDANSETRON 4 MG/2 ML INJ IV (02:21)
[2022-09-04] MEDS: LACTATED RINGERS 1,000 ML 100 ML IV (03:52)
[2022-09-04] MEDS: FENT 2MCG/ML BUPIV 0.125% EPI 200 MCG/100 ML PLAST..BAG 6 MCG EPIDURAL (04:56)
--- NOTE | 2022-09-04 06:01 | PM.OBPNLAB ---
Date/Time Date Patient Seen: 09/04/22 Time Patient Seen: 06:01 Pain Control Pain control: tolerating well Pelvic Exam station: -2 Contractions Contraction intensity: Mild Assessment and Plan Comments: I was informed by nursing staff that patient insist on only having female provider do her delivery. Nursing staff arranged for a local certified nurse biomedical engineer to assume care only when the patient was completely dilated with the biomedical engineer be involved and come to the hospital
[2022-09-04] MEDS: OXYTOCIN PREMIX 30 UNIT/500 ML PLAST..BAG 200 UNIT IV (10:02)
--- NOTE | 2022-09-04 10:21 | P.PCNOB_ITS ---
Events: Other (Good care: 9 visits starting on 01/15/22. TWG 30 lbs. Pre-preg weight 245 lbs. ) Labor & Delivery Delivery date: 09/04/22 Intrapartal Events: None (Expectant management led to spontaneous labor. No interventions) Route of delivery: L&D Laceration Description: Perineal - 1st Degree Delivery repair: other (none) Quantitative Blood Loss: 30 Anesthesia Type: Epidural Complications: none. Surprisingly low blood loss Narrative: This CNM arrived when Namrata was complete per RN exam. +2 by my exam. Pushed with pressure felt through epidural in sidelying position to have a nicola NSVB of baby boy, Micah, who was vigorous and immediately placed on Namrata's chest for drying and stimulation. Apgars 8/9. Cord clamped by Kamlesh and cut by DENNISE after cord stopped pulsing. 3 vessels noted. Spontaneous delivery of placenta with maternal effort x 2. Placenta appears complete. 1st degree laceration hemostatic and not repaired. Bleeding light, QBL 30 mL. Cord blood collected for blood type. Namrata and Kamlesh are thrilled to meet their son, Micah. [place] Baby 1: gender: Male Presentation: vertex Position: Left Occiput Transverse Placenta delivery description: Spontaneous Cord Vessel Description: 3 Vessels score (1 min): 8 score (5 min): 9 Plan for aftercare: Routine care
[2022-09-04 10:46] VITALS: BP 130/81; PULSE 94; RESP 18; TEMP 2.4; TEMP 36.3
[2022-09-04] MEDS: KETOROLAC 30 MG/ML VIAL IV ×2 (15:03→21:06)
[2022-09-04] MEDS: ACETAMINOPHEN 325 MG TABLET 975 MG PO (17:20)
[2022-09-04 22:38] LABS: Hematocrit 33.9 % (36-46); Hemoglobin 11.5 g/dL (12.0-16.0)
[2022-09-05] MEDS: ACETAMINOPHEN 325 MG TABLET 975 MG PO ×2 (00:38→14:58)
[2022-09-05] MEDS: KETOROLAC 30 MG/ML VIAL IV (04:54)
--- NOTE | 2022-09-05 14:40 | P.DS_ITS ---
Discharge Providers Provider Date of admission: 09/03/22 20:08 Discharge Date: 09/05/22 Consults: 09/05/22 10:59 Consult to Stroboroma Operator Routine Comment: Discharge provider: Peggy Ji CNM, ARNP Summary Hospital Course Date Patient Seen: 09/05/22 Time Patient Seen: 14:00 Diagnoses: Normal course (Z39.1) Hospital Course: PROM, expectant management, NSVB. Uneventful course. Breast feeding. Peripartum Data Delivery Method: Natural Vaginal Laceration Description: Perineal - 1st Degree Episiotomy description: None complications: none 1: Gender: Male Discharge Diagnosis (1) (normal spontaneous vaginal delivery): Start Date: 09/03/22 Status: Acute Problem Details: PROM, expectant management (2) Rubella non-immune status, delivered, current hospitalization: Start Date: 09/05/22 Status: Acute Problem Details: TDAP prior to discharge (3) Hemorrhoids complicating and/or puerperium with complication: Start Date: 09/05/22 Status: Acute Problem Details: Review hemorrhoid care with PP instructions Time Spent with Patient Time attestation: Total time spent providing and/or coordinating discharge services: Time spent: Greater than 30 minutes Specific discharge activities: Reviewed normal postpatum care of self including mood, perineum, breast feeding. Reviewed warning signs including bleeding, infection, blood clots. Objective Labs 09/04/22 22:28 Labs: Laboratory Results - last 24 hr 09/04/22 22:28 Hgb 11.5 L Hct 33.9 L Exam Vital Signs (past 8 hours): 118/75 82 bpm 15/min 97.9 F Const General: healthy appearing and comfortable [facility] Head: normocephalic Eyes General: appearance normal, both eyes and all related structures Neck Neck: normal visual inspection Resp Effort & Inspection: normal respiratory effort GI Inspection: normal to inspection General: other (Fundus firm U-1) Skin General: no rashes or lesions noted Neuro General: patient oriented x3 Extrem General: normal to inspection Psych Appearance: grossly normal Discharge Plan Discharge Plan Patient Disposition: Home Provider Discharge Comment: Home with and son Discharge orders & Medications Prescriptions: Continued prenat.vits,roberto,[id number] Tablet 1 tab PO DAILY Discontinued valacyclovir 500 mg tablet See Rx Instructions .ROUTE .COMPLEX Qty: 90 3RF Dose Instruction: Take 1 tablet by mouth daily Rx Instructions: Take 1 tablet by mouth daily Follow up/Referrals: Ania Morrell MD [Physician] - 6 Weeks (Call office to schedule your appointment) Peggy Ji, DENNISE, JUNIOR MECHANICAL ENGINEER [Advanced Nuclear Medicine Specialist] - Diet/Activity/Treatments Diet: Diet as Tolerated and Regular Skin/Wound/Dressing Care Report to your healthcare provider any signs of infection, such as:: chills, fever, unusual drainage and unusual redness Visit Report/Discharge Packet Instructions: DI for Labor and Delivery, Vaginal , DI for Depression, DI for Hemorrhoids, Hemorrhoids (Alternative Therapy) Stand Alone Forms: Patient Portal/API, Stroke Signs & Symptoms
--- NOTE | 2022-09-05 14:55 | PM.OBDS.1 ---
Discharge Providers Provider Date of admission: 09/03/22 20:08 Discharge Date: 09/05/22 Consults: 09/05/22 10:59 Consult to Wire Setter Routine Comment: Discharge provider: Peggy Ji CNM, ARNP Summary Hospital Course Hospital Course: PROM, expectant management, NSVB. Uneventful course. Breast feeding. Discharge Diagnosis (1) (normal spontaneous vaginal delivery): Status: Acute Problem Details: PROM, expectant management (2) Rubella non-immune status, delivered, current hospitalization: Status: Acute Problem Details: MMR prior to discharge (3) Hemorrhoids complicating and/or puerperium with complication: Status: Acute Problem Details: Review hemorrhoid care with PP instructions Time Spent with Patient Time attestation: Total time spent providing and/or coordinating discharge services: Objective Labs 09/04/22 22:28 Labs: Laboratory Results - last 24 hr 09/04/22 22:28 Hgb 11.5 L Hct 33.9 L Discharge Plan Discharge Plan Patient Disposition: Home Provider Discharge Comment: Home with and son Discharge orders & Medications Prescriptions: Continued prenat.vits,roberto,yzh-rpcy-yqyec Tablet 1 tab PO DAILY Discontinued valacyclovir 500 mg tablet See Rx Instructions .ROUTE .COMPLEX Qty: 90 3RF Dose Instruction: Take 1 tablet by mouth daily Rx Instructions: Take 1 tablet by mouth daily Follow up/Referrals: Ania Morrell MD [Physician] - 6 Weeks (Call office to schedule your appointment) Peggy Ji CNM, ARNP [Advanced Station Air Traffic Control Specialist] - Diet/Activity/Treatments Diet: Diet as Tolerated and Regular Skin/Wound/Dressing Care Report to your healthcare provider any signs of infection, such as:: chills, fever, unusual drainage and unusual redness Visit Report/Discharge Packet Instructions: Hemorrhoids (Alternative Therapy), DI for Labor and Delivery, Vaginal , DI for Hemorrhoids, DI for Depression Stand Alone Forms: Patient Portal/API, Stroke Signs & Symptoms
[2022-09-05] MEDS: IBUPROFEN 600 MG TABLET PO (14:57)
[2022-09-05 15:00] VITALS: BP 120/77; PULSE 80; RESP 18; TEMP 36.6
[2022-09-05] MEDS: MEASLES,MUMPS,RUBELLA VACC/PF 0.5 ML VIAL SUBCUT (16:24)
== END 2022-09-05 16:50 | disposition home or self-care (01) | DRG 560 ==
PROVIDERS: Advanced Practice Midwife; Obstetrics & Gynecology; Admitting Provider Obstetrics & Gynecology; Referring Provider Obstetrics & Gynecology; Visit Provider Obstetrics & Gynecology
DX: O42.02 Full-term premature rupture of membranes, onset of labor within 24 hours of rupture (principal); O98.52 Other viral diseases complicating childbirth; B00.9 Herpesviral infection, unspecified; O87.2 Hemorrhoids in the puerperium; Z3A.39 39 weeks gestation of pregnancy; Z37.0 Single live birth; Z23 Encounter for immunization
CPT/HCPCS: 36415; 59050; 85014; 85018; 85025; 86850; 86900; 86901; G0379; J1885; J2405; J2590

== ENCOUNTER → 2024-01-12 10:40 | Outpatient (CLI) | payer OTHER, MEDICAID, SELFPAY ==
[2024-01-12 12:14] LABS: Add Manual Diff / Slide Review NO; Basophils Absolute Auto 0 /uL (0-100); Basophils Percent Auto 0.2 % (0-2); Eosinophils Absolute Auto 300 /uL (0-450); Hematocrit 37.3 % (36-46); Hemoglobin 12.5 g/dL (12.0-16.0); Lymphocytes Absolute Auto 1800 /uL (1100-4500); Lymphocytes Percent Auto 35.9 % (25-40); Mean Corpuscular HGB Conc 33.6 % (30-36); Mean Corpuscular Hemoglobin 29.6 PG (26-34); Mean Corpuscular Volume 88.1 fL (80-100); Monocytes Absolute Auto 400 /uL (0-900); Monocytes Percent Auto 8.4 % (3-14); Neutrophils Absolute Auto 2600 /uL (1500-7000); Neutrophils Percent Auto 50.5 % (50-75); Platelet Count 241 X10^3/uL (150-400); Red Blood Cell Count 4.24 X10^6/uL (4.0-5.2); Red Cell Distribution Width 13.9 % (11.6-14.8); White Blood Cell Count 5.1 X10^3/uL (4.5-11.0)
[2024-01-12 13:01] LABS: Alanine Aminotransferase 17 IU/L (<35); Albumin 4.3 g/dL (3.5-5.0); Albumin Globulin Ratio 1.7 (1.0-2.8); Alkaline Phosphatase 68 U/L (38-126); Aspartate Aminotransferase 20 IU/L (14-36); BUN Creatinine Ratio 18.8 (6-22); Bilirubin Total 0.4 mg/dL (0.2-1.3); Blood Urea Nitrogen 12 mg/dL (7-17); Calcium 8.8 mg/dL (8.4-10.2); Carbon Dioxide 27 mmol/L (22-32); Chloride 105 mmol/L (98-107); Estimated Glomerular Filt Rate > 60 mL/min (>60); Globulin 2.6 g/dL (1.7-4.1); Glucose 95 mg/dL (70-100); HEMOLYSIS < 15 (0-50); Potassium 4.2 mmol/L (3.4-5.1); Sodium 138 mmol/L (137-145); Total Protein 6.9 g/dL (6.3-8.2)
[2024-01-12 13:16] LABS: Hemoglobin A1C% w Est Avg Glu 5.4 % (4.0-6.0)
[2024-01-12 13:28] LABS: TSH w/ Reflex to FT4 2.45 uIU/mL (0.47-4.68)
== END ==
PROVIDERS: PCP Student in an Organized Health Care Education/Training Program; Referring Provider Student in an Organized Health Care Education/Training Program; Visit Provider Student in an Organized Health Care Education/Training Program
DX: R63.5 Abnormal weight gain (principal)
CPT/HCPCS: 36415; 80053; 83036; 84443; 85025

== ENCOUNTER → 2025-03-08 11:42 | Outpatient (CLI) | payer OTHER, SELFPAY ==
[2025-03-08 13:13] LABS: HCG Quantitative /Beta subunit < 2.39 mIU/mL
== END ==
PROVIDERS: PCP Student in an Organized Health Care Education/Training Program; Referring Provider Student in an Organized Health Care Education/Training Program; Visit Provider Student in an Organized Health Care Education/Training Program
DX: Z32.00 Encounter for pregnancy test, result unknown (principal)
CPT/HCPCS: 36415; 84702